=== PATIENT | female | born 1985 | race Hispanic/Latino ===

== ENCOUNTER → 2016-10-31 | Outpatient (REF) | payer OTHER | LOC: M LAB REF 12:53 | PROVIDERS: ATTEND Advanced Practice Midwife | DX: O36.80X0 Pregnancy with inconclusive fetal viability, not applicable or unspecified (principal) ==

== ENCOUNTER → 2017-04-27 | Outpatient (CLI) | payer OTHER, MEDICAID | LOC: M SMT 13:04 | DX: Z36.89 Encounter for other specified antenatal screening (principal); Z3A.20 20 weeks gestation of pregnancy | CPT/HCPCS: 76811 ==

== ENCOUNTER → 2017-06-14 | Outpatient (CLI) | payer OTHER ==
[2017-06-14 13:54] LABS: HEMATOCRIT 35.5 % (36.0-47.0); HEMOGLOBIN 12.1 g/dl (12.0-16.0); MEAN CORPUSCULAR HEMOGLOBIN 28.9 pg (27.0-33.0); MEAN CORPUSCULAR HGB CONC 34.1 g/dl (32.0-36.5); MEAN CORPUSCULAR VOLUME 84.7 fl (80.0-96.0); PLATELET COUNT, AUTOMATED 256 10^3/uL (150-450); RED BLOOD COUNT 4.19 10^6/uL (4.00-5.40); RED CELL DISTRIBUTION WIDTH 12.9 % (11.5-14.5); WHITE BLOOD COUNT 9.2 10^3/uL (4.0-10.0)
[2017-06-14 14:14] LABS: GLUCOSE CHALLENGE TEST 1 HOUR 89 MG/DL (LESS THAN 140)
== END ==
LOC: M LAB 11:56
DX: Z36.89 Encounter for other specified antenatal screening (principal); Z3A.00 Weeks of gestation of pregnancy not specified
CPT/HCPCS: 82950

== ENCOUNTER → 2017-08-08 | Outpatient (CLI) | payer OTHER ==
[2017-08-08 18:43] LABS: HEMATOCRIT 39.1 % (36.0-47.0); HEMOGLOBIN 13.1 g/dl (12.0-15.5); MEAN CORPUSCULAR HEMOGLOBIN 28.6 pg (27.0-33.0); MEAN CORPUSCULAR HGB CONC 33.5 g/dl (32.0-36.5); MEAN CORPUSCULAR VOLUME 85.4 fl (80.0-96.0); PLATELET COUNT, AUTOMATED 277 10^3/uL (150-450); RED BLOOD COUNT 4.58 10^6/uL (4.00-5.40); RED CELL DISTRIBUTION WIDTH 13.2 % (11.5-14.5); WHITE BLOOD COUNT 10.2 10^3/uL (4.0-10.0)
[2017-08-08 19:21] LABS: T UPTAKE 25 % (30-39); THYROID STIMULATING HORMONE 0.615 uIU/ML (0.358-3.740); THYROXINE (T4) 12.1 UG/DL (4.5-12.0)
== END ==
LOC: M SMT 13:39
DX: Z36.85 Encounter for antenatal screening for Streptococcus B (principal); R00.2 Palpitations; Z3A.00 Weeks of gestation of pregnancy not specified
CPT/HCPCS: 84443

== ENCOUNTER → 2017-08-11 | Outpatient (CLI) | payer OTHER | LOC: M RAD 06:03 | DX: O26.843 Uterine size-date discrepancy, third trimester (principal) | CPT/HCPCS: 76816 ==

== ENCOUNTER 2017-09-15 03:19 | Inpatient (IN) | payer OTHER ==
[2017-09-15 06:41] LABS: HEMATOCRIT 36.7 % (36.0-47.0); HEMOGLOBIN 12.5 g/dl (12.0-15.5); MEAN CORPUSCULAR HEMOGLOBIN 28.5 pg (27.0-33.0); MEAN CORPUSCULAR HGB CONC 34.1 g/dl (32.0-36.5); MEAN CORPUSCULAR VOLUME 83.6 fl (80.0-96.0); PLATELET COUNT, AUTOMATED 235 10^3/uL (150-450); RED BLOOD COUNT 4.39 10^6/uL (4.00-5.40); RED CELL DISTRIBUTION WIDTH 13.6 % (11.5-14.5); WHITE BLOOD COUNT 8.8 10^3/uL (4.0-10.0)
[2017-09-15] MEDS: OXYTOCIN DRIP 30 UNITS in APPROPRIATE DILUENT 1 EA IV (10:40)
[2017-09-15] MEDS: LR 1,000 ML IV (14:26)
[2017-09-15] MEDS ORDERED: FENTANYL 2MCG/ML ROPIVACAINE 0.2% IN 0.9% NACL 200ML IVBAG As Ordered (20:27)
[2017-09-15] MEDS ORDERED: EPIDURAL/PCA KEYS XX (23:00)
[2017-09-15] MEDS ORDERED: EPIDURAL COMMENT XX (23:00)
[2017-09-15] MEDS ORDERED: FENTANYL/ROPIVACAINE/NACL BAG 200 ML EPIDURAL (23:00)
[2017-09-15] MEDS ORDERED: diphenhydrAMINE INJ 50MG/ML VIAL (J1200) IV (23:00)
[2017-09-15] MEDS ORDERED: REFRIGERATOR IV KEYS XX (23:00)
[2017-09-15] MEDS ORDERED: NALOXONE INJ 0.4 MG/1 ML VIAL (J2310) IV (23:00)
[2017-09-15] MEDS ORDERED: ePHEDrine SULFATE 25 MG/5 ML(5MG/ML) SYRINGE IV (23:00)
[2017-09-15] MEDS ORDERED: ONDANSETRON 4MG/2ML VIAL (J2405) IV (23:00)
[2017-09-15] MEDS ORDERED: LACTATED RINGER'S 1000 ML IV (23:00)
[2017-09-16] MEDS ORDERED: UNASYN 3 GM VIAL As Ordered (09:13)
[2017-09-16] MEDS: AMPICILLIN SOD/SULBACTAM SOD 3 GM in D5W MINI-BAG PLUS 100 ML IV ×3 (09:20→21:18)
[2017-09-16] MEDS ORDERED: OXYTOCIN 30 UNITS IN 0.9% NaCl 500ML IV BAG (J2590) As Ordered (11:11)
[2017-09-16 11:24] LABS: CORD GAS ABE A -10.4; CORD GAS HCO3 A 17.6 MEQ/L; CORD GAS O2 SAT A 78.2 %; CORD GAS PCO2 A 46.6 mmHg; CORD GAS PH A 7.196 UNITS; CORD GAS PO2 A 42.9 mmHg; CORD GAS TCO2 A 19.1 MEQ/L
[2017-09-16 11:28] LABS: CORD GAS ABE V -8.1; CORD GAS HCO3 V 18.7 MEQ/L; CORD GAS O2 SAT V 85.6 %; CORD GAS PCO2 V 42.9 mmHg; CORD GAS PH V 7.257 UNITS; CORD GAS PO2 V 47.6 mmHg; CORD GAS SBC V 17.8 MEQ/L
[2017-09-16] MEDS ORDERED: METHYLERGONOVINE MALEATE 0.2 MG/ML VIAL (J2210) As Ordered ×2 (11:55→11:56)
[2017-09-16] MEDS ORDERED: LR 1,000 ML IV (12:22)
[2017-09-16] MEDS: OXYTOCIN DRIP 30 UNITS in APPROPRIATE DILUENT 1 EA IV (12:22)
[2017-09-16] MEDS ORDERED: DIBUCAINE 1% OINTMENT 30GM TOP (12:30)
[2017-09-16] MEDS ORDERED: DOCUSATE SODIUM 100 MG CAP PO (12:30)
[2017-09-16] MEDS ORDERED: PROMETHAZINE 25 MG TAB PO (12:30)
[2017-09-16] MEDS ORDERED: ACETAMINOPHEN 500 MG TAB PO (12:30)
[2017-09-16] MEDS: METHYLERGONOVINE MALEATE 0.2 MG/ML VIAL (J2210) IM (12:30)
[2017-09-16] MEDS ORDERED: ONDANSETRON 4MG/2ML VIAL (J2405) IV (12:30)
[2017-09-17] MEDS: AMPICILLIN SOD/SULBACTAM SOD 3 GM in D5W MINI-BAG PLUS 100 ML IV (02:54)
[2017-09-17] MEDS: RHOGAM 300 MCG (1500 IU) INJ (J2790) IM (08:04)
[2017-09-17] MEDS: MEASLES,MUMPS,RUBELLA VACCINE INJ (MMR-II) (90707) SC (08:05)
[2017-09-17] MEDS: PRENATAL VITAMINS CHEWABLE TABLET PO (08:17)
[2017-09-17] MEDS: IBUPROFEN 800 MG TAB PO ×2 (08:20→17:20)
[2017-09-18] MEDS: PRENATAL VITAMINS CHEWABLE TABLET PO ×2 (07:15→07:52)
[2017-09-18] MEDS: IBUPROFEN 800 MG TAB PO ×2 (07:53→19:22)
[2017-09-19] MEDS: PRENATAL VITAMINS CHEWABLE TABLET PO (08:59)
== END 2017-09-19 10:45 | disposition home or self-care (01) | DRG 560 ==
LOC: M LDO 03:19 → M OBS 09-16 17:42 → M LDI 04:39
PROVIDERS: Specialist
PROC: 10E0XZZ Delivery of Products of Conception, External Approach (ICD-10-PCS; principal; 2017-09-16)
PROC: 0KQM0ZZ Repair Perineum Muscle, Open Approach (ICD-10-PCS; 2017-09-16)
DX: O42.02 Full-term premature rupture of membranes, onset of labor within 24 hours of rupture (principal); O41.1230 Chorioamnionitis, third trimester, not applicable or unspecified; Z3A.41 41 weeks gestation of pregnancy; O48.0 Post-term pregnancy; O69.81X0 Labor and delivery complicated by cord around neck, without compression, not applicable or unspecified; O70.1 Second degree perineal laceration during delivery; Z37.0 Single live birth

== ENCOUNTER → 2017-09-22 | Outpatient (REF) | payer OTHER | LOC: M LAB REF 15:29 | DX: R33.8 Other retention of urine (principal) ==

== ENCOUNTER → 2017-11-21 | Outpatient (REF) | payer OTHER ==
[2017-11-21 18:03] LABS: FREE THYROXINE INDEX 3.6 % (1.3-4.8); T UPTAKE 33 % (30-39); THYROXINE (T4) 10.9 UG/DL (4.5-12.0)
[2017-11-22 09:58] LABS: THYROID PEROXIDASE ANTIBODY < 28.0 U/ML (<60.0)
[2017-11-24 08:13] LABS: THYROID STIMULATING IMMUNOGLOB <0.10 IU/L (0.00-0.55)
[2017-11-24 08:13] LABS: TSH RECEPTOR ASSAY <0.50 IU/L (0.00-1.75)
== END ==
LOC: M LAB REF 17:08
DX: E04.8 Other specified nontoxic goiter (principal)
CPT/HCPCS: 84443

== ENCOUNTER → 2017-11-27 | Outpatient (CLI) | payer OTHER | LOC: M RAD 07:29 | DX: E04.1 Nontoxic single thyroid nodule (principal) | CPT/HCPCS: 76536 ==

== ENCOUNTER → 2018-03-06 | Outpatient (REF) | payer OTHER | LOC: M LAB REF 13:51 | DX: E04.1 Nontoxic single thyroid nodule (principal) | CPT/HCPCS: 88173 ==

== ENCOUNTER → 2019-06-25 | Outpatient (REF) | payer OTHER ==
[~2019-06-25] MED LIST: IBUP-1114 PO; MAPA500T2 PO; PRENTAB9 PO
[2019-06-25 13:41] LABS: BASO % 0.5 % (0.0-1.0); EOS # 0.1 10^3/uL (0.0-0.5); EOS % 1.8 % (0.0-3.0); HEMATOCRIT 38.3 % (36.0-47.0); HEMOGLOBIN 12.9 g/dl (12.0-15.5); LYMPH # 1.6 10^3/uL (1.5-5.0); LYMPH % 42.6 % (24.0-44.0); MEAN CORPUSCULAR HEMOGLOBIN 27.6 pg (27.0-33.0); MEAN CORPUSCULAR HGB CONC 33.7 g/dl (32.0-36.5); MONO # 0.3 10^3/uL (0.0-0.8); MONO % 7.3 % (0.0-5.0); NEUTROPHILS # 1.8 10^3/uL (1.5-8.5); NEUTROPHILS % 47.5 % (36.0-66.0); PLATELET COUNT, AUTOMATED 286 10^3/uL (150-450); RED BLOOD COUNT 4.67 10^6/uL (4.00-5.40); WHITE BLOOD COUNT 3.8 10^3/uL (4.0-10.0)
[2019-06-25 14:24] LABS: ALBUMIN 4.1 GM/DL (3.2-5.2); ALT/SGPT 22 U/L (12-78); BILIRUBIN,TOTAL 0.4 MG/DL (0.2-1.0); BLOOD UREA NITROGEN 11 MG/DL (7-18); CALCIUM LEVEL 8.9 MG/DL (8.5-10.1); CARBON DIOXIDE LEVEL 26 MEQ/L (21-32); CHLORIDE LEVEL 107 MEQ/L (98-107); CHOLESTEROL LEVEL 153 MG/DL (<200); CREATININE FOR GFR 0.73 MG/DL (0.55-1.30); FREE T4 1.18 NG/DL (0.76-1.46); GLOMERULAR FILTRATION RATE > 60.0 (>60); GLUCOSE, FASTING 89 MG/DL (70-100); HDL CHOLESTEROL 64 MG/DL (>40); LDL CHOLESTEROL 75 MG/DL (<100); NON-HDL-C 89 MG/DL; POTASSIUM SERUM 3.6 MEQ/L (3.5-5.1); SODIUM LEVEL 138 MEQ/L (136-145); THYROID STIMULATING HORMONE 0.614 uIU/ML (0.358-3.740); TOTAL PROTEIN 7.4 GM/DL (6.4-8.2); TRIGLYCERIDES LEVEL 69 MG/DL (<150)
== END ==
LOC: M LAB REF 12:33
PROVIDERS: ATTEND Physician Assistant
DX: E04.1 Nontoxic single thyroid nodule (principal); Z13.228 Encounter for screening for other metabolic disorders; Z13.9 Encounter for screening, unspecified; Z00.01 Encounter for general adult medical examination with abnormal findings

== ENCOUNTER → 2020-02-24 | Outpatient (REF) | payer OTHER | LOC: M LAB REF 16:53 | PROVIDERS: ATTEND Physician Assistant | DX: Z12.4 Encounter for screening for malignant neoplasm of cervix (principal); R87.610 Atypical squamous cells of undetermined significance on cytologic smear of cervix (ASC-US) ==

== ENCOUNTER → 2020-04-03 | Outpatient (REF) | payer OTHER ==
[2020-04-03 13:29] LABS: MEAN CORPUSCULAR HEMOGLOBIN 27.7 pg (27.0-33.0); MEAN CORPUSCULAR HGB CONC 33.3 g/dl (32.0-36.5); MEAN CORPUSCULAR VOLUME 83.1 fl (80.0-96.0); PLATELET COUNT, AUTOMATED 262 10^3/uL (150-450); RED BLOOD COUNT 4.33 10^6/uL (4.00-5.40); WHITE BLOOD COUNT 6.3 10^3/uL (4.0-10.0)
[2020-04-03 14:48] LABS: HEPATITIS C VIRUS ABY INDEX < 0.0 INDEX (<0.8); HIV 1&2 SCREEN CENTAUR NEGATIVE (NEGATIVE)
== END ==
LOC: M PLALAB 10:40
PROVIDERS: ATTEND Advanced Practice Midwife
DX: Z34.81 Encounter for supervision of other normal pregnancy, first trimester (principal)

== ENCOUNTER → 2020-05-04 | Outpatient (CLI) | payer MEDICAID, OTHER | LOC: M PLALAB 08:03 | PROVIDERS: ATTEND Obstetrics & Gynecology | DX: O09.521 Supervision of elderly multigravida, first trimester (principal); Z3A.00 Weeks of gestation of pregnancy not specified ==

== ENCOUNTER → 2020-06-02 | Outpatient (REF) | payer OTHER ==
[2020-06-02 11:28] LABS: FREE THYROXINE INDEX 3.1 % (1.3-4.8); THYROID STIMULATING HORMONE 0.885 uIU/ML (0.358-3.740); THYROXINE (T4) 12.8 UG/DL (4.5-12.0)
== END ==
LOC: M PLALAB 08:47
PROVIDERS: ATTEND Advanced Practice Midwife
DX: E04.1 Nontoxic single thyroid nodule (principal)

== ENCOUNTER → 2020-06-15 | Outpatient (CLI) | payer OTHER ==
--- NOTE | 2020-06-15 17:21 | REP ---
INDICATION: ANATOMY. COMPARISON: None TECHNIQUE: Real-time sonographic evaluation of the gravid uterus performed. FINDINGS: Estimated gestational age is18 weeks 3 days, EDC 11/13/2020. Today's measurements indicate appropriate growth. Presentation: Cephalic Placenta anterior, grade 1, without evidence of placenta previa. heart rate is recorded at 147 beats per minute. Amniotic fluid is subjectively normal. Closed cervical length is measured at 3.3 cm. Biometry chart: BPD: 43 mm, 18 weeks 6 days, 62nd percentile. HC: 158 mm, 18 weeks 5 days, 57th percentile AC: 130 mm, 18 weeks 3 days, 51st percentile Femur length: 30 mm, 19 weeks 3 days, 73rd percentile HC to AC ratio: 1.22, normal range 1.07-1.26. Estimated weight: 263g, 73rd percentile. anatomy: Cranium: Grossly normal Lateral Ventricles/Choroid Plexus: Grossly normal Posterior Fossa/Cerebellum: Grossly normal Nose/lips/profile: Grossly normal Four chamber heart: Grossly normal Right ventricular outflow tract: Grossly normal Left ventricular outflow tract: Grossly normal Left-sided stomach: Grossly normal Kidneys: Grossly normal Bladder: Grossly normal Cord Insertion: Grossly normal 3 vessel cord: Grossly normal Spine: Grossly normal IMPRESSION: Viable single intrauterine gestation as above. <Electronically signed by Reji Casanova > 06/15/20 [id number]
== END ==
LOC: M WHC 13:19
PROVIDERS: ATTEND Advanced Practice Midwife
DX: Z34.92 Encounter for supervision of normal pregnancy, unspecified, second trimester (principal); Z3A.18 18 weeks gestation of pregnancy

== ENCOUNTER → 2020-08-03 | Outpatient (REF) | payer OTHER | LOC: M PLALAB 07:40 | PROVIDERS: ATTEND Obstetrics & Gynecology | DX: Z36.89 Encounter for other specified antenatal screening (principal); Z3A.25 25 weeks gestation of pregnancy ==

== ENCOUNTER → 2020-08-06 | Outpatient (REF) | payer OTHER ==
[2020-08-06 10:41] LABS: HEMATOCRIT 34.8 % (36.0-47.0); HEMOGLOBIN 11.6 g/dl (12.0-15.5); MEAN CORPUSCULAR HEMOGLOBIN 28.9 pg (27.0-33.0); MEAN CORPUSCULAR HGB CONC 33.3 g/dl (32.0-36.5); MEAN CORPUSCULAR VOLUME 86.8 fl (80.0-96.0); PLATELET COUNT, AUTOMATED 249 10^3/uL (150-450); RED BLOOD COUNT 4.01 10^6/uL (4.00-5.40); WHITE BLOOD COUNT 7.9 10^3/uL (4.0-10.0)
== END ==
LOC: M PLALAB 08:02
PROVIDERS: ATTEND Obstetrics & Gynecology
DX: Z36.89 Encounter for other specified antenatal screening (principal); Z3A.25 25 weeks gestation of pregnancy

== ENCOUNTER → 2020-08-31 | Outpatient (REF) | payer OTHER | LOC: M SFHCWAGY 10:00 | PROVIDERS: ATTEND Specialist | DX: R33.9 Retention of urine, unspecified (principal) ==

== ENCOUNTER → 2020-10-13 | Outpatient (REF) | payer OTHER | LOC: M SFHCWAGY 17:07 | PROVIDERS: ATTEND Advanced Practice Midwife | DX: Z34.93 Encounter for supervision of normal pregnancy, unspecified, third trimester (principal) ==

== ENCOUNTER → 2020-10-29 | Outpatient (REF) | payer OTHER | LOC: M SFHCWAGY 10:57 | PROVIDERS: ATTEND Specialist | DX: R35.0 Frequency of micturition (principal) ==

== ENCOUNTER → 2020-11-04 | Outpatient (CLI) | payer OTHER | LOC: M LABSMTC 09:41 | PROVIDERS: ATTEND Specialist | DX: Z11.52 Encounter for screening for COVID-19 (principal); Z3A.39 39 weeks gestation of pregnancy ==

== ENCOUNTER → 2020-11-09 | Outpatient (REF) | payer OTHER ==
[~2020-11-09] MED LIST changes: +NOXI1TAB PO
[2020-11-09 15:35] LABS: APPEARANCE, URINE CLEAR (CLEAR); BACTERIA, URINE AUTO 1+ (NEGATIVE); BILIRUBIN, URINE AUTO NEGATIVE (NEGATIVE); BLOOD, URINE BLOOD 2+ (NEGATIVE); COLOR, URINE STRAW (YELLOW); GLUCOSE, URINE (UA) AUTO NEGATIVE (NEGATIVE); KETONE, URINE AUTO NEGATIVE (NEGATIVE); LEUKOCYTE ESTERASE, URINE AUTO NEGATIVE (NEGATIVE); NITRITE, URINE AUTO NEGATIVE (NEGATIVE); PROTEIN, URINE AUTO NEGATIVE (NEGATIVE); RBC, URINE AUTO 0 /HPF (0-3); SPECIFIC GRAVITY URINE AUTO 1.003 (1.002-1.035); SQUAMOUS EPITHELIAL CELL UR AU 0 /HPF (0-6); UROBILINOGEN, URINE AUTO 0.2 mg/dL (0.0-2.0); WBC, URINE AUTO 0 /HPF (0-3)
== END ==
LOC: M SFHCWAGY 14:55
PROVIDERS: ATTEND Advanced Practice Midwife
DX: R33.9 Retention of urine, unspecified (principal)

== ENCOUNTER 2020-11-10 10:35 | Inpatient (IN) | payer OTHER ==
[~2020-11-10] VITALS: Ht 157.5 cm; Wt 71.8 kg
[2020-11-10] VITALS (14 sets, daily range): BP systolic 100–133; BP diastolic 58–76
[~2020-11-10 10:35] MED LIST changes: -NOXI1TAB PO
[2020-11-10] MEDS ORDERED: NOXI1TAB PO (11:00)
--- NOTE | 2020-11-10 11:45 | HPEPDOC ---
Obstetrical History & Physical General Date of Admission Nov 10, 2020 at 10:35 Primary Care Physician: CURTIS DICK MD History of Present Illness Lidia is 39F at 39.4GA w/ SEN 11/13/20 based off of LMP who presents to L&D w/ oligohydramnios discovered during pn visit today. She initiated care w/ [facility] during 1st trimester. care has been uncomplicated. Reports decreased movement in office today w/ u/s showing MVP <2cm, MILI <5cm, FHR 125bpm. Denies vaginal bleeding, leakage of fluid. Chief Complaint: Induction of labor, Amniotic fluid index (<5cm) Information Provided By: Patient Age: 35 : 2 Term: 1 Pre-term: 0 Abortions: 0 Livin Care Care: Good Care Dating Final EDC: Nov 13, 2020 Final EDC by: LMP LMP: Feb 07, 2020 Antepartum Course Admission Weight (lbs.): 159 Past Medical History Past Obstetrical History : Past Obstetrical History: Primgravida Date of Delivery: September 16, 2017 Gestation: 42 Type of Delivery: Spontaneous Vaginal Del. Sex of Infant: Female Weight of (grams): 3175 Complications: Yes (pp urinary retention) [employer] History: No pertinent history Past Medical History Surgical History: Denies/None Family History Significant Family History: No pertinent family hx Social History Marital Status: Family situation: Spouse/partner home Psychosocial History: No pertinent psych hx * Smoker: non-smoker Alcohol: Denies Drugs: denies Allergies Coded Allergies: MS - No Known Drug Allergy (Verified Allergy, Unknown, 09/15/17) Medications Scheduled No.137/Iron/Folic Acd ( Vitamin Tablet) 1 Tab Tab, 1 TAB PO DAILY Vitamin D3/Folic Acid (Noxifol-D3 2,500 Unit-1 mg Tab) 2,500 Unit Tablet, 1 TAB PO DAILY Scheduled PRN Acetaminophen (Mapap) 500 Mg Tab, 1,000 MG PO Q6HP PRN for PAIN SCALE 1-5 Ibuprofen (Ibuprofen) 400 Mg Tab, 800 MG PO Q8HP PRN for PAIN SCALE 6-10 Physical Examination Physical Examination GENERAL: Alert and oriented times three. BREAST: . ABDOMEN: Gravid and non-tender to touch. FETUS: Is vertex (VTX) by sterile vaginal examination (SVE), fetus is vertex (VTX) by Arvind. HEART RATE: Regular rate and rhythm. RESPIRATORY: regular rate w/out accessory muscle use EXTREMITIES: No edema. No clonus. Vital Signs/I&O Vital Signs Date Time Temp Pulse Resp B/P (MAP) Pulse Ox O2 Delivery O2 Flow Rate FiO2 11/10/20 10:55 98.3 98 16 129/76 (93) Laboratory Data 24H LABS Laboratory Tests 2 11/10/20 11:14: Serology Scanned Report Hepatitis B Testing Pertinent Laboratoy Data Blood Type: B+ RBC Antibody Screen: Negative HIV: Negative Hepatitis B: Negative Hepatitis C: Negative Rapid Plasma Reagin: Nonreactive Rubella: Immune Varicella: Immune Chlamydia/Gonorrhea: Negative Group B Streptococcus: Negative Quad Screen Test: Negative Glucose Tolerance Test: 118 Anatomy Ultrasound Ultrasound Date: Jun 15, 2020 Placenta Location: Anterior Normal Anatomy: Yes Placenta Previa: No Estimated Weight (grams): 263 Other Ultrasounds 11/10/20, limited u/s Information MVP <2cm, MILI <5cm, FHR 125bpm Vaginal Examination Dilation: 1cm Effacement: 50% Station: -3 Presentation: Cephalic presentation Position: Vertex (occiput) Assessment Heart Rate (FHR): 150 Variability: Increased Accelerations: Present Decelerations: None Tocometer Contractions: Yes Frequency: greater than 10 min/apart Duration: less than 60 seconds Assessment/Plan Assessment Lidia is a 35-year-old (G) 2 para (P)1-0-0-1 at 39+4 weeks by 1st trimester ultrasound. Presents to Labor and Delivery (L&D) w/ oligohydramnios discovered in [facility] clinic today and interested in labor induction. Plan Admit and orient. Diet: regular Group B Streptococcus (GBS) negative. Labs and intravenous (IV) per unit protocol. Counseled on Pitocin and induction of labor (IOL). Lactated Ringers (LR): Bolus 800 mL Anticipate normal spontaneous delivery (). C-S as appropriate. Connie Kaufman DO Nov 10, 2020 11:45
[2020-11-10] MEDS: miSOPROStol 50MCG 1/2 TABLET SL SCH ×2 (13:07→20:00)
[2020-11-10 13:23] LABS: HEMATOCRIT 36.2 % (36.0-47.0); HEMOGLOBIN 12.2 g/dl (12.0-15.5); MEAN CORPUSCULAR HEMOGLOBIN 27.3 pg (27.0-33.0); MEAN CORPUSCULAR HGB CONC 33.7 g/dl (32.0-36.5); PLATELET COUNT, AUTOMATED 269 10^3/uL (150-450); RED BLOOD COUNT 4.47 10^6/uL (4.00-5.40); WHITE BLOOD COUNT 10.2 10^3/uL (4.0-10.0)
[2020-11-10] MEDS ORDERED: OXYTOCIN DRIP 30 UNITS in IV 1 EA IV SCH (23:05)
[2020-11-10] MEDS ORDERED: BUTORPHANOL 2 MG/ML INJ (J0595) IV ONE (23:05)
[2020-11-10] MEDS ORDERED: PROMETHAZINE INJ 25 MG/ML VIAL (J2550) IV ONE (23:05)
[2020-11-11] VITALS (32 sets, daily range): BP systolic 92–132; BP diastolic 51–94
[2020-11-11] MEDS: LR 1,000 ML IV SCH ×2 (05:38→12:50)
[2020-11-11] MEDS ORDERED: BUTORPHANOL 2 MG/ML INJ (J0595) IV ONE (12:30)
[2020-11-11] MEDS ORDERED: PROMETHAZINE INJ 25 MG/ML VIAL (J2550) IV ONE (12:30)
[2020-11-11] MEDS ORDERED: LIDOCAINE 1% MDV 20ML VIAL As Ordered ONE (15:54)
[2020-11-11] MEDS ORDERED: ACETAMINOPHEN TAB 650MG DOSE (2X325MG) PO PRN (16:25)
[2020-11-11] MEDS ORDERED: DIBUCAINE 1% OINTMENT 30GM TOP PRN (16:25)
[2020-11-11] MEDS ORDERED: DOCUSATE SODIUM 100MG CAPSULE PO PRN (16:25)
[2020-11-11] MEDS ORDERED: OXYTOCIN DRIP 30 UNITS in IV 1 EA IV SCH (16:25)
[2020-11-11] MEDS ORDERED: METHYLERGONOVINE MALEATE 0.2 MG TAB PO PRN (16:25)
[2020-11-11] MEDS ORDERED: IBUPROFEN 800 MG TAB PO PRN (16:25)
[2020-11-11] MEDS ORDERED: ANUSOL HC CREAM 30GM TOP PRN (16:25)
[2020-11-11] MEDS ORDERED: MEASLES,MUMPS,RUBELLA VACCINE INJ (MMR-II) (90707) SC SCH (16:25)
[2020-11-11] MEDS ORDERED: LIDOCAINE 1% MDV 20ML VIAL INFIL ONE (16:25)
[2020-11-11] MEDS ORDERED: METHYLERGONOVINE MALEATE 0.2 MG/ML VIAL (J2210) IM ONE (16:25)
[2020-11-11] MEDS ORDERED: RHOGAM 300 MCG (1500 IU) INJ (J2790) IM SCH (16:25)
[2020-11-11] MEDS ORDERED: ACETAMINOPHEN 500 MG TAB PO PRN (16:25)
[2020-11-11] MEDS: IBUPROFEN 600MG TAB PO PRN (18:05)
[2020-11-11] MEDS ORDERED: TAMSULOSIN 0.4 MG CAP PO ONE (18:55)
[2020-11-12] MEDS: IBUPROFEN 600MG TAB PO PRN ×2 (06:11→13:38)
[2020-11-12 06:17] VITALS: BP 116/58
[2020-11-12 07:30] VITALS: BP 116/58
[2020-11-12] MEDS: TAMSULOSIN 0.4 MG CAP PO SCH (10:16)
[2020-11-12] MEDS: PRENATAL VITAMINS CHEWABLE TABLET PO SCH (10:16)
[2020-11-12 18:00] VITALS: BP 122/65
[2020-11-13 05:53] VITALS: BP 103/57
--- NOTE | 2020-11-13 08:22 | IPNPDOC ---
Progress Note Date of Service: Nov 13, 2020 Day#: 1 Progress Note SUBJECT: Status post . She has been ambulating, voiding spontaneously with out issue and tolerating regular diet. Lochia decreasing/minimal. Pain is well- controlled. Denies headache, visual changes, right upper quadrant pain, shortness breath or chest pain. OBJECTIVE: VITAL SIGNS: Within normal limits, afebrile. Alert and oriented times three. Abdomen: Fundus firm at U-2. Soft, NTTP. ASSESSMENT: Status post uncomplicated spontaneous vaginal delivery. Vitals within normal limits, afebrile, hemodynamically stable with no evidence of infection. PLAN: Discharge to home today. Due to patient's history of urinary retention she was advised to take Flomax as needed daily and to notify the office if this has become ineffective Tylenol and Motrin for pain. Routine instructions/precautions reviewed. Routine PP visit in 6 weeks in clinic. VS, I&O, 24H, Fishbone Vital Signs/I&O Vital Signs Date Time Temp Pulse Resp B/P (MAP) Pulse Ox O2 Delivery O2 Flow Rate FiO2 11/13/20 05:53 98.3 80 16 103/57 (72) 99 Room Air TONY VICTOR DO Nov 13, 2020 08:22
[2020-11-13] MEDS ORDERED: FLOM0.4C39 PO (08:23)
[2020-11-13] MEDS: TAMSULOSIN 0.4 MG CAP PO SCH (08:41)
[2020-11-13] MEDS: PRENATAL VITAMINS CHEWABLE TABLET PO SCH (08:41)
== END 2020-11-13 10:22 | disposition home or self-care (01) | DRG 560 ==
LOC: M LDI 10:35 → M OBS 11-11 20:05
PROVIDERS: ADMIT Specialist; ATTEND Advanced Practice Midwife
PROC: 3E033VJ Introduction of Other Hormone into Peripheral Vein, Percutaneous Approach (ICD-10-PCS; 2020-11-10)
PROC: 10E0XZZ Delivery of Products of Conception, External Approach (ICD-10-PCS; principal; 2020-11-11)
PROC: 0KQM0ZZ Repair Perineum Muscle, Open Approach (ICD-10-PCS; 2020-11-11)
DX: O41.03X0 Oligohydramnios, third trimester, not applicable or unspecified (principal); Z3A.39 39 weeks gestation of pregnancy; O70.1 Second degree perineal laceration during delivery; Z37.0 Single live birth

== ENCOUNTER → 2021-02-11 | Outpatient (REF) | payer OTHER ==
[~2021-02-11] MED LIST changes: +FLOM0.4C39 PO; +NOXI1TAB PO
== END ==
LOC: M LAB REF 13:30
PROVIDERS: ATTEND Internal Medicine Endocrinology, Diabetes & Metabolism
DX: E04.1 Nontoxic single thyroid nodule (principal)

== ENCOUNTER → 2022-06-07 | Outpatient (REF) | payer OTHER ==
[~2022-06-07] MED LIST changes: +FISH1000 PO; +NORE0.353; +[UNRECOGNIZED DRUG - CODE] MC
[2022-06-07 16:43] LABS: BASO % 0.2 % (0.0-1.0); EOS # 0.1 10^3/uL (0.0-0.5); EOS % 1.1 % (0.0-3.0); HEMATOCRIT 40.5 % (36.0-47.0); HEMOGLOBIN 13.1 g/dl (12.0-15.5); LYMPH # 1.7 10^3/uL (1.5-5.0); LYMPH % 36.1 % (24.0-44.0); MEAN CORPUSCULAR HEMOGLOBIN 27.3 pg (27.0-33.0); MEAN CORPUSCULAR HGB CONC 32.3 g/dl (32.0-36.5); MEAN CORPUSCULAR VOLUME 84.4 fl (80.0-96.0); MONO # 0.3 10^3/uL (0.0-0.8); MONO % 5.5 % (2.0-8.0); NEUTROPHILS # 2.7 10^3/uL (1.5-8.5); NEUTROPHILS % 56.9 % (36.0-66.0); PLATELET COUNT, AUTOMATED 279 10^3/uL (150-450); WHITE BLOOD COUNT 4.7 10^3/uL (4.0-10.0)
[2022-06-07 17:00] LABS: THYROID STIMULATING HORMONE 0.52 uIU/ML (0.55-4.78); TOTAL 25(OH) VITAMIN D 49.6 NG/ML (20.0-100.0)
== END ==
LOC: M LAB REF 16:01
PROVIDERS: ATTEND Physician Assistant
DX: Z13.9 Encounter for screening, unspecified (principal); R53.83 Other fatigue; E04.1 Nontoxic single thyroid nodule

== ENCOUNTER → 2022-06-29 | Outpatient (CLI) | payer OTHER ==
[~2022-06-29] MED LIST changes: +GASTROGRAFIN SOLUTION 30ML As Ordered ONE; +ISOVUE-370 76% 100ML VIAL As Ordered ONE
== END ==
LOC: M RAD 08:30
PROVIDERS: ATTEND Physician Assistant
DX: K59.04 Chronic idiopathic constipation (principal)

== ENCOUNTER → 2022-08-25 | Outpatient (CLI) | payer OTHER ==
[~2022-08-25] MED LIST changes: -GASTROGRAFIN SOLUTION 30ML As Ordered ONE; -ISOVUE-370 76% 100ML VIAL As Ordered ONE
== END ==
LOC: M PLARAD 08:25
PROVIDERS: ATTEND Physician Assistant
DX: R91.8 Other nonspecific abnormal finding of lung field (principal)

== ENCOUNTER → 2022-09-26 | Outpatient (CLI) | payer OTHER | LOC: M WHC 09:20 | PROVIDERS: ATTEND Physician Assistant | DX: E04.1 Nontoxic single thyroid nodule (principal) ==

== ENCOUNTER → 2022-12-08 | Outpatient (REF) | payer OTHER ==
[2022-12-08 19:35] LABS: CHOLESTEROL RISK RATIO 2.27 (<5); HDL CHOLESTEROL 79.1 MG/DL (>40); LDL CHOLESTEROL 91.9 MG/DL (<100); NON-HDL-C 100.9 MG/DL; THYROID STIMULATING HORMONE 0.549 uIU/ML (0.55-4.78)
[2022-12-08 19:36] LABS: FREE T4 1.14 NG/DL (0.89-1.76)
== END ==
LOC: M LAB REF 16:30
PROVIDERS: ATTEND Physician Assistant
DX: E04.1 Nontoxic single thyroid nodule (principal); E78.5 Hyperlipidemia, unspecified

== ENCOUNTER → 2024-02-12 | Outpatient (REF) | payer OTHER ==
[2024-02-12 17:51] LABS: FREE T4 1.48 NG/DL (0.89-1.76); THYROID STIMULATING HORMONE 0.658 uIU/ML (0.55-4.78)
== END ==
LOC: M LAB REF 16:22
PROVIDERS: ATTEND Physician Assistant
DX: E04.1 Nontoxic single thyroid nodule (principal); R94.6 Abnormal results of thyroid function studies

== ENCOUNTER → 2024-09-02 | Outpatient (CLI) | payer OTHER ==
[~2024-09-02] MED LIST changes: -FLOM0.4C39 PO; +TAMS-18 PO
== END ==
LOC: M WHC 11:35
PROVIDERS: ATTEND Nurse Practitioner Family
DX: E04.1 Nontoxic single thyroid nodule (principal)

== ENCOUNTER → 2024-10-31 | Outpatient (REF) | payer OTHER ==
[2024-10-31 19:03] LABS: BASO # 0.0 10^3/uL (0.0-0.2); BASO % 0.3 % (0.0-1.0); EOS # 0.1 10^3/uL (0.0-0.5); EOS % 1.0 % (0.0-3.0); LYMPH # 1.9 10^3/uL (1.5-5.0); LYMPH % 27.4 % (24.0-44.0); MONO # 0.4 10^3/uL (0.0-0.8); MONO % 6.0 % (2.0-8.0); NEUTROPHILS # 4.5 10^3/uL (1.5-8.5); NEUTROPHILS % 65.0 % (36.0-66.0); PLATELET COUNT, AUTOMATED 297 10^3/uL (150-450)
[2024-10-31 19:09] LABS: ALT/SGPT 21 U/L (7.0-40); AST/SGOT 25 U/L (<34); CALCIUM LEVEL 9.5 MG/DL (8.5-10.1); CARBON DIOXIDE LEVEL 28 MMOL/L (20-31); CHLORIDE LEVEL 102 MMOL/L (98-107); CREATININE FOR GFR 0.71 MG/DL (0.55-1.30); GLOMERULAR FILTRATION RATE > 90.0 (>60); IRON (FE) 48 UG/DL (50-170); PERCENT SATURATION 18.8 % (13.2-45.0); POTASSIUM SERUM 3.8 MMOL/L (3.5-5.1); SODIUM LEVEL 141 MMOL/L (136-145)
[2024-10-31 19:12] LABS: FREE T4 1.37 NG/DL (0.89-1.76)
== END ==
LOC: M LAB REF 17:24
PROVIDERS: ATTEND Student in an Organized Health Care Education/Training Program
DX: R79.89 Other specified abnormal findings of blood chemistry (principal); R53.83 Other fatigue

== ENCOUNTER → 2025-01-07 | Outpatient (REF) | payer OTHER ==
[2025-01-07 20:23] LABS: Trichomonas vaginalis (AMP) NOT DETECTED (NEGATIVE)
[2025-01-07 20:47] LABS: GC DNA AMPLIFICATION NEGATIVE (NEGATIVE)
[2025-01-09 20:52] LABS: HPV APTIMA Not Detected (Not Detected)
== END ==
LOC: M LAB REF 17:01
PROVIDERS: ATTEND Nurse Practitioner Family
DX: Z12.4 Encounter for screening for malignant neoplasm of cervix (principal)